=== PATIENT | female | born 1975 | race Caucasian/White ===

== ENCOUNTER → 2018-03-16 12:30 | Outpatient (CLI) | payer OTHER, SELFPAY ==
--- NOTE | 2018-03-16 | DI.RAD.S_ITS ---
PROCEDURE: XR CHEST 2V INDICATIONS: CHEST PAIN TECHNIQUE: 2 views of the chest were acquired. COMPARISON: [facility], , CHEST 2 VIEW, 06/28/2014, 13:38. FINDINGS: Surgical changes and devices: None. Lungs and pleura: No pleural effusions or pneumothorax. Lungs are clear. Mediastinum: Mediastinal contours are normal. Heart size is normal. Bones and chest wall: No suspicious bony abnormalities. Soft tissues appear unremarkable. IMPRESSION: No acute cardiopulmonary disease. Dictated by: Chivo Bentley M.D. on 03/16/2018 at 17:02 Approved by: Chivo Bentley M.D. on 03/16/2018 at 17:03
== END ==
PROVIDERS: PCP Physician Assistant; Visit Provider Physician Assistant
DX: R07.9 Chest pain, unspecified (principal)
CPT/HCPCS: 71046

== ENCOUNTER → 2019-04-19 10:52 | Outpatient (CLI) | payer OTHER, SELFPAY ==
[2019-04-19 12:58] LABS: Free T4, Direct Thyroxine 1.21 ng/dL (0.78-2.19)
== END ==
PROVIDERS: PCP Physician Assistant; Visit Provider Obstetrics & Gynecology
DX: N92.0 Excessive and frequent menstruation with regular cycle (principal)
CPT/HCPCS: 36415; 84439; 84443

== ENCOUNTER → 2020-01-18 06:41 | Outpatient (CLI) | payer OTHER, SELFPAY ==
--- NOTE | 2020-01-18 | DI.CT.S_ITS ---
PROCEDURE: CT SINUS SCREEN WO CON INDICATIONS: New daily persistent headache sinusitis TECHNIQUE: Noncontrast 3.0 mm axial images acquired from the frontal sinuses to the mid-sella, with coronal and sagittal reformats. For radiation dose reduction, the following was used: automated exposure control, adjustment of mA and/or kV according to patient size. COMPARISON: None. FINDINGS: Image quality: Excellent. Maxillary Sinuses: No bony remodeling or destruction. Sinuses are clear except for a mild chronic appearing mucous retention cyst inferior left maxillary sinus. Ethmoid Air Cells: No bony remodeling or destruction. Sinuses are clear. Sphenoid Sinuses: No bony remodeling or destruction. Sinuses are clear. Frontal Sinuses: No bony remodeling or destruction. Sinuses are clear. Ostiomeatal Complexes: Ostiomeatal complexes are patent. No Sung cells. Miscellaneous: Visualized intra-orbital contents are normal. No claudio bullosa or paradoxical turbinate curvature. No nasal septal deviation. IMPRESSION: Currently there is no evidence of acute or chronic sinusitis. Mastoid air cells are clear. Note is made of a small mucous retention cyst at the inferior aspect of the left maxillary sinus. Dictated by: Evans Herron M.D. on 01/18/2020 at 11:50 Approved by: Evans Herron M.D. on 01/18/2020 at 11:51
--- NOTE | 2020-01-18 07:41 | DI.CT.S_ITS ---
PROCEDURE: CT HEAD/BRAIN WO CON INDICATIONS: New daily persistent headache sinusitis TECHNIQUE: Noncontrast 4.5 mm thick angled axial sections acquired from the foramen magnum to the vertex, with coronal and sagittal reformats. For radiation dose reduction, the following was used: automated exposure control, adjustment of mA and/or kV according to patient size. COMPARISON: None. FINDINGS: Image quality: Excellent. CSF spaces: Basal cisterns are patent. No extra-axial fluid collections. Ventricles are normal in size and shape. Brain: No midline shift. No intracranial masses or hemorrhage. Dia-white matter interface is normal. Skull and face: Calvarium and visualized facial bones are intact, without suspicious lesions. Sinuses: Visualized sinuses and mastoids are clear. IMPRESSION: Normal for age, source of current headaches is not seen. Dictated by: Evans Herron M.D. on 01/18/2020 at 8:19 Approved by: Evans Herron M.D. on 01/18/2020 at 8:19
[2020-01-18 08:19] LABS: Add Manual Diff / Slide Review NO; Basophils Absolute Auto 100 /uL (0-100); Basophils Percent Auto 0.7 % (0-2); Eosinophils Absolute Auto 100 /uL (0-450); Eosinophils Percent Auto 1.5 % (2-4); Hematocrit 37.2 % (36-46); Hemoglobin 12.1 g/dL (12.0-16.0); Lymphocytes Absolute Auto 1700 /uL (1100-4500); Lymphocytes Percent Auto 22.1 % (25-40); Mean Corpuscular HGB Conc 32.6 % (30-36); Mean Corpuscular Hemoglobin 24.7 PG (26-34); Mean Corpuscular Volume 75.6 fL (80-100); Monocytes Absolute Auto 700 /uL (0-900); Monocytes Percent Auto 9.2 % (3-14); Neutrophils Absolute Auto 5200 /uL (1500-7000); Neutrophils Percent Auto 66.5 % (50-75); Platelet Count 362 X10^3/uL (150-400); Red Blood Cell Count 4.92 X10^6/uL (4.0-5.2); Red Cell Distribution Width 14.6 % (11.6-14.8); White Blood Cell Count 7.9 X10^3/uL (4.5-11.0)
[2020-01-18 08:38] LABS: Alanine Aminotransferase 13 IU/L (<35); Albumin 4.3 g/dL (3.5-5.0); Albumin Globulin Ratio 1.5 (1.0-2.8); Alkaline Phosphatase 67 U/L (38-126); Aspartate Aminotransferase 19 IU/L (14-36); BUN Creatinine Ratio 18.4 (6-22); Bilirubin Total 0.4 mg/dL (0.2-1.3); Blood Urea Nitrogen 14 mg/dL (7-17); C-Reactive Protein Quant 0.6 mg/dL (<1.0); Calcium 9.2 mg/dL (8.4-10.2); Carbon Dioxide 27 mmol/L (22-32); Chloride 104 mmol/L (98-107); Cholesterol 287 mg/dL (140-199); Estimated Glomerular Filt Rate > 60.0 mL/min (>60); Globulin 2.9 g/dL (1.7-4.1); Glucose 86 mg/dL (70-100); HDL Cholesterol 49 mg/dL (40-60); HEMOLYSIS < 15 (0-50); LDL Cholesterol Calculated 160 mg/dL (<100); Potassium 4.3 mmol/L (3.4-5.1); Sodium 138 mmol/L (137-145); Total Protein 7.2 g/dL (6.3-8.2); Triglycerides 390 mg/dL (35-150)
[2020-01-18 08:49] LABS: Erythrocyte Sedimentation Rate 23 MM/HR (0-20)
== END ==
PROVIDERS: PCP Physician Assistant; Referring Provider Physician Assistant; Visit Provider Physician Assistant
DX: G44.52 New daily persistent headache (NDPH) (principal); G43.909 Migraine, unspecified, not intractable, without status migrainosus; J32.1 Chronic frontal sinusitis; E78.00 Pure hypercholesterolemia, unspecified; J34.1 Cyst and mucocele of nose and nasal sinus
CPT/HCPCS: 36415; 70450; 70486; 80053; 80061; 85025; 85651; 86140

== ENCOUNTER 2021-01-31 13:41 | Emergency (ER) | payer BC, SELFPAY ==
[2021-01-31 13:49] VITALS: BP 178/108; PULSE 93; RESP 17; TEMP 36.4; O2SAT 99
[2021-01-31] MEDS: DEXAMETHASONE 10 MG/ML VIAL IV (14:33)
[2021-01-31] MEDS: diphenhydrAMINE 50 MG/ML VIAL IV (14:33)
[2021-01-31] MEDS: SODIUM CHLORIDE 0.9% 1,000 ML 1000 ML IV (14:33)
[2021-01-31] MEDS: KETOROLAC 30 MG/ML VIAL 15 MG IV (14:33)
[2021-01-31] MEDS: METOCLOPRAMIDE 10 MG/2 ML INJ IV (14:34)
--- NOTE | 2021-01-31 14:46 | ED.HA ---
HPI - Headache <Javier Alegria PA-C - Last Filed: 01/31/21 18:57> General Chief Complaint: Headache Stated Complaint: migraine Time Seen by Provider: 01/31/21 14:01 Mode of arrival: Ambulatory History of Present Illness HPI Narrative: Maria Luisa presents today with chief complaint of frontal headache that came on this morning after she woke up at approximately 6:15 a.m.. She reports that she has a history of migraines and states that this is the exact same as her previous headaches. She denies any subtle differences to this headache than her previous ones. She has had 2 episodes of vomiting, has light sensitivity and sound sensitivity. She denies any significant runny nose, sore throat, cough, chest pain, abdominal pain or any other acute concerns or complaints at this time. She has not taken anything to help alleviate her symptoms. She has only had a few sips of fluids today. Related Data Home Medications Medication Instructions Recorded Confirmed Sumatriptan Succinate (Imitrex) 100 PRN #0 09/23/09 05/27/19 [ALEVE] PRN #0 09/23/09 05/27/19 [SINUS H/A MED] PRN #0 09/23/09 05/27/19 propranolol 10 mg tablet 10 mg PO QDAY #0 09/17/16 05/27/19 atorvastatin 20 mg tablet 20 mg PO DAILY 04/19/19 05/27/19 esomeprazole magnesium 40 mg 40 mg PO BID cap 04/19/19 05/27/19 capsule,delayed release losartan 50 mg tablet 50 mg PO DAILY 04/19/19 05/27/19 Allergies Allergy/AdvReac Type Severity Reaction Status Date / Time No Known Allergies Allergy Uncoded 05/27/19 15:58 Review of Systems <Javier Alegria PA-C - Last Filed: 01/31/21 18:57> Review of Systems Narrative: As per HPI Patient History <Javier Alegria PA-C - Last Filed: 01/31/21 18:57> Medical History (Updated 01/31/21 @ 16:04 by Javier Alegria PA-C) Acne (~1992) Allergies (~2009) Chicken pox (~1978) Vision disorder Surgical History (Updated 04/21/19 @ 19:36 by Arelis Lovelace) Anesthesia History of esophagogastroduodenoscopy (EGD) History of tonsillectomy (~2006) Intussusception of small bowel (~1974) Family History (Updated 04/21/19 @ 19:40 by Arelis Lovelace) Father AVM (arteriovenous malformation) Mother Hyperlipidemia Hypertension Sister Hyperlipidemia Hypertension Grandfather Diabetes mellitus Grandmother Liver cancer Hypertension History of heart disease Grandfather History of heart disease Hypertension Stroke Social History Smoking Status: Never smoker Smoking Status: Never smoker Substance Use Type: does not use Exam <Javier Alegria PA-C - Last Filed: 01/31/21 18:57> Narrative Exam Narrative: Const General: cooperative, healthy appearing, comfortable and no acute distress Nutritional Appearance: average body habitus and well nourished Orientation: alert and oriented x3 HENMT Head: normal to inspection and normocephalic Ears: hearing grossly normal bilaterally, external ears normal, TM's normal bilaterally, EAC's normal, mastoids normal and no periauricular adenopathy Nose: external nose normal, nares normal and no nasal discharge Eyes: PERRLA, EOMI, light sensitivity noted bilaterally. Face and sinus: normal facial exam, sinuses nontender and face symmetric Mouth: oral mucosae normal, lip normal, tongue normal and moist mucous membranes Teeth and gingiva: dentition normal and gingiva normal Throat: posterior oropharynx normal, uvula midline, no postnasal drainage and no uvular edema Eyes periorbital findings normal, eyelids normal, conjunctivae normal Neck: normal visual inspection, full ROM, no lymphadenopathy, no meningeal signs and supple Resp normal respiratory effort, able to speak in complete sentences, not labored and no respiratory distress, clear to auscultation bilaterally, no crackles, no rales and no wheezes Cardio regular rate regular rhythm Heart Sounds: no gallops, no murmurs and no rubs Extrem normal to inspection, no pedal edema and no calf tenderness Neuro Alert and Oriented x3, normal gait, moves all extremities, cranial nerves 2-12 grossly intact, normal coordination. Initial Vital Signs Initial Vital Signs: Vital Signs Temperature 97.6 F 01/31/21 13:49 Pulse Rate 93 H 01/31/21 13:49 Respiratory Rate 17 01/31/21 13:49 Blood Pressure 178/108 H 01/31/21 13:49 Pulse Oximetry 99 01/31/21 13:49 <Juan Malik DO - Last Filed: 02/04/21 07:10> Initial Vital Signs Initial Vital Signs: Vital Signs Temperature 97.6 F 01/31/21 13:49 Pulse Rate 93 H 01/31/21 13:49 Respiratory Rate 17 01/31/21 13:49 Blood Pressure 178/108 H 01/31/21 13:49 Pulse Oximetry 99 01/31/21 13:49 Course <Javier Alegria PA-C - Last Filed: 01/31/21 18:57> Orders Ordered: Discontinued Medications Dexamethasone (Dexamethasone 10 Mg/Ml Vial) 10 mg IV NOW ONE Stop: 01/31/21 14:18 Last Admin: 01/31/21 14:33 Dose: 10 mg Documented by: CAMILLA Diphenhydramine HCl (Diphenhydramine 50 Mg/Ml Vial) 50 mg IV NOW ONE Stop: 01/31/21 14:20 Last Admin: 01/31/21 14:33 Dose: 50 mg Documented by: CAMILLA Sodium Chloride (Normal Saline 0.9%) 1,000 mls @ 1,000 mls/hr IV BOLUS ONE Stop: 01/31/21 15:16 Last Infusion: 01/31/21 16:19 Dose: 0 mls/hr Documented by: Admin: 01/31/21 14:33 Dose: 1,000 mls/hr Documented by: CAMILLA Ketorolac Tromethamine (Ketorolac 30 Mg/Ml Vial) 15 mg IV NOW ONE Stop: 01/31/21 14:18 Last Admin: 01/31/21 14:33 Dose: 15 mg Documented by: CAMILLA Metoclopramide HCl (Metoclopramide 10 Mg/2 Ml Inj) 10 mg IV NOW ONE Stop: 01/31/21 14:18 Last Admin: 01/31/21 14:34 Dose: 10 mg Documented by: CAMILLA Vital Signs Vital signs: Vital Signs - 8 hr 01/31/21 13:49 01/31/21 16:21 Temperature 97.6 F Pulse Rate 93 H 96 H Respiratory Rate 17 Blood Pressure 178/108 H 166/78 H Pulse Oximetry 99 99 <Juan Malik DO - Last Filed: 02/04/21 07:10> Orders Ordered: Discontinued Medications Dexamethasone (Dexamethasone 10 Mg/Ml Vial) 10 mg IV NOW ONE Stop: 01/31/21 14:18 Last Admin: 01/31/21 14:33 Dose: 10 mg Documented by: CAMILLA Diphenhydramine HCl (Diphenhydramine 50 Mg/Ml Vial) 50 mg IV NOW ONE Stop: 01/31/21 14:20 Last Admin: 01/31/21 14:33 Dose: 50 mg Documented by: CAMILLA Sodium Chloride (Normal Saline 0.9%) 1,000 mls @ 1,000 mls/hr IV BOLUS ONE Stop: 01/31/21 15:16 Last Infusion: 01/31/21 16:19 Dose: 0 mls/hr Documented by: Admin: 01/31/21 14:33 Dose: 1,000 mls/hr Documented by: CAMILLA Ketorolac Tromethamine (Ketorolac 30 Mg/Ml Vial) 15 mg IV NOW ONE Stop: 01/31/21 14:18 Last Admin: 01/31/21 14:33 Dose: 15 mg Documented by: CAMILLA Metoclopramide HCl (Metoclopramide 10 Mg/2 Ml Inj) 10 mg IV NOW ONE Stop: 01/31/21 14:18 Last Admin: 01/31/21 14:34 Dose: 10 mg Documented by: CAMILLA Vital Signs Vital signs: Vital Signs - 8 hr 01/31/21 13:49 01/31/21 16:21 Temperature 97.6 F Pulse Rate 93 H 96 H Respiratory Rate 17 Blood Pressure 178/108 H 166/78 H Pulse Oximetry 99 99 MDM - Headache <Javier Alegria PA-C - Last Filed: 01/31/21 18:57> [facility] Narrative Medical decision making narrative: Differential diagnosis includes subarachnoid hemorrhage, meningitis, tension headache, intracranial bleed, neoplasm. Patient has known history of migraines and reports that this headache is of the exact same characteristic as her previous headaches. She denies any sudden onset or maximal in onset symptoms. She denies any fever, neck stiffness, unexpected weight changes. Her symptoms improved with PE therapy here in the emergency department. She had a normal neurologic examination. We will treat eye as an outpatient at this time. She has home a migraine medication that she did not take today that she can take tomorrow if symptoms continue. Recommend PCP follow-up. ER return precautions were discussed. Patient verbalizes understanding and agrees to plan and has no further concerns at this time. Thank you A [id number] system was used with the dictation of this note. Please disregard any spelling or grammatical errors. Discharge Plan Departure Patient Disposition: Home Clinical Impression: Migraines Qualifiers: Migraine type: without aura Status migrainosus presence: without status migrainosus Intractability: not intractable Qualified Code(s): G43.009 - Migraine without aura, not intractable, without status migrainosus Instructions: DI for Migraine Activity Restrictions/Additional Instructions: It was very nice to meet you this afternoon. Please go home and get some rest. If you have worsening symptoms including fever, confusion, dizziness, worsening pain or any other acute concerns or complaints do not hesitate to return for re-evaluation. Thank you Javier Alegria PA-C Prescriptions: No Action Sumatriptan Succinate (Imitrex) 100 PRN Qty: 0 RF: 0 [SINUS H/A MED] PRN Qty: 0 RF: 0 [ALEVE] PRN Qty: 0 RF: 0 propranolol 10 MG tablet 10 mg PO QDAY Qty: 0 RF: 0 atorvastatin 20 mg tablet 20 mg PO DAILY RF: 0 losartan 50 mg tablet 50 mg PO DAILY RF: 0 esomeprazole magnesium 40 mg capsule,delayed release(DR/EC) 40 mg PO BID RF: 0 Referrals: Justa Cabrera PA-C [Primary Care Provider] - <Juan Malik DO - Last Filed: 02/04/21 07:10> [facility] Dr Malik Co-Sign Statement: I was available for consultation during this patient's emergency department visit. This chart is signed by myself for administrative purposes only. I did not have direct contact with this patient during this visit. They were seen independently by the APC.
[2021-01-31 16:21] VITALS: BP 166/78; PULSE 96; O2SAT 99
== END 2021-01-31 16:21 | disposition home or self-care (01) ==
PROVIDERS: Emergency Provider Physician Assistant; PCP Physician Assistant
DX: G43.009 Migraine without aura, not intractable, without status migrainosus (principal); R11.10 Vomiting, unspecified
CPT/HCPCS: 96361; 96374; 96375; 99283; 99284; J1100; J1200; J1885; J2765

== ENCOUNTER 2022-08-30 09:59 | Emergency (ER) | payer BC, SELFPAY ==
[2022-08-30] VITALS (14 sets, daily range): BP systolic 188–228; BP diastolic 93–113; PULSE 85–98; RESP 14–22; TEMP 36.5; O2SAT 97–100; BMI 35.5
[2022-08-30] MEDS: ONDANSETRON 4 MG ODT SL (11:38)
--- NOTE | 2022-08-30 11:45 | DI.CT.S_ITS ---
PROCEDURE: CT HEAD/BRAIN WO CON INDICATIONS: migtaine, htn TECHNIQUE: Noncontrast 4.5 mm thick angled axial sections acquired from the foramen magnum to the vertex, with coronal and sagittal reformats. For radiation dose reduction, the following was used: automated exposure control, adjustment of mA and/or kV according to patient size. COMPARISON: [facility], CT, CT HEAD/BRAIN WO CON, 01/18/2020, 6:54. FINDINGS: Image quality: Excellent. CSF spaces: Basal cisterns are patent. No extra-axial fluid collections. Ventricles are normal in size and shape. Brain: No midline shift. No intracranial masses or hemorrhage. Dia-white matter interface is normal. Skull and face: Calvarium and visualized facial bones are intact, without suspicious lesions. Sinuses: Visualized sinuses and mastoids are clear. IMPRESSION: Normal CT head without acute intracranial findings. Dictated by: Sal[place] Fair M.D. on 08/30/2022 at 12:35 Approved by: Sal[place] Fair M.D. on 08/30/2022 at 12:37
--- NOTE | 2022-08-30 12:39 | ED_ITS ---
HPI - Headache General Chief Complaint: Headache Stated Complaint: Migraine Time Seen by Provider: 08/30/22 11:44 Source: patient, RN notes reviewed and old records reviewed Mode of arrival: Ambulatory Limitations: no limitations History of Present Illness HPI Narrative: This is a 46-year-old female with history of migraines, dyslipidemia, GERD, intussusception has not 8-month-old with surgical repair. Patient presents she states she gets migraines quite frequently but today has a little bit worse. She states about once or twice annually she will have a migraine that is worse than her typical. Typical pattern in terms of location of pain she has a little photophobia, slight blurred vision, she has nausea she is had some vomiting. Patient denies numbness, tingling or weakness. No syncope. No fevers or chills. No chest pain or shortness of breath. No diarrhea, no constipation, no incontinence. Patient states she tried to sumatriptan this morning without any resolution. She is had some mild migraine symptoms for last several days she is been using her sumatriptan it will be helpful but today was not. Patient states she also takes Nexium, amitriptyline and atorvastatin for her daily medications. She states she had a prior throat surgery for nodule and tonsils removed 15 years ago and had surgery for intussusception at 8 months age. No known drug allergies. She does have some seasonal allergies and sensitivity to sent. No tobacco, no alcohol, no illicit. Her primary care is Justa Cabrera. Related Data Home Medications Medication Instructions Recorded Confirmed Sumatriptan Succinate (Imitrex) 100 PRN ##0 09/23/09 05/27/19 [ALEVE] PRN ##0 09/23/09 05/27/19 [SINUS H/A MED] PRN ##0 09/23/09 05/27/19 propranolol 10 mg tablet 10 mg PO QDAY ##0 09/17/16 05/27/19 atorvastatin 20 mg tablet 20 mg PO DAILY 04/19/19 05/27/19 esomeprazole magnesium 40 mg 40 mg PO BID 04/19/19 05/27/19 capsule,delayed release losartan 50 mg tablet 50 mg PO DAILY 04/19/19 05/27/19 Previous Rx's Medication Instructions Recorded sumatriptan succinate 100 mg tablet See Rx Instructions PO .COMPLEX 08/30/22 #10 tabs Allergies Allergy/AdvReac Type Severity Reaction Status Date / Time No Known Drug Allergies Allergy Verified 08/30/22 13:42 Review of Systems Review of Systems ROS Unobtainable: All systems reviewed & are unremarkable except as noted in HPI and below Patient History Medical History Acne (~1992) Allergies (~2009) Chicken pox (~1978) Vision disorder Surgical History Anesthesia History of esophagogastroduodenoscopy (EGD) History of tonsillectomy (~2006) Intussusception of small bowel (~1974) Family History Father AVM (arteriovenous malformation) Mother Hyperlipidemia Hypertension Sister Hyperlipidemia Hypertension Grandfather Diabetes mellitus Grandmother Liver cancer Hypertension History of heart disease Grandfather History of heart disease Hypertension Stroke Social History Smoking Status: Never smoker Smoking Status: Never smoker Substance Use Type: does not use Exam Narrative Exam Narrative: GEN: well nourished, well appearing female, alert and oriented x 3, patient appears to be in [id number] distress. HEENT: Atraumatic, pupils are equal round reactive to light, positive photophobia, extraocular movements are intact, nares are clear, TMs are clear with no fluid, there is no conjunctival pallor. Throat is clear without any exudates, erythema, tonsillar enlargement or uvular deviation, no facial droop. HEART: Regular rate and rhythm without murmur, clicks, rubs. Pulses are equal in upper and lower extremities LUNGS:Lungs clear to auscultation, no wheezes, rales, crackles, chest moves symmetrically ABD:bowel sounds normal, soft, non-tender, no guarding, rebound, rigidity, no masses noted, no hepatosplenomegaly :No CVA tenderness MSCL: Non-tender, no muscle atrophy, muscles strength 5/5 upper and lower extremities, full range of motion, normal gait NEURO:CN 2-12 intact, sensation normal, finger nose finger test normal, heel schwartz test normal, normal speech, no dysarthria SKIN: No rash, erythema or other skin changes. Initial Vital Signs Initial Vital Signs: Vital Signs Pulse Rate 98 H 08/30/22 10:14 Pulse Oximetry 99 08/30/22 10:14 Course Orders Ordered: Discontinued Medications Dexamethasone (Dexamethasone 10 Mg/Ml Vial) 10 mg IV NOW ONE Stop: 08/30/22 12:49 Last Admin: 08/30/22 13:06 Dose: 10 mg Documented By: DEANNA Sodium Chloride (Normal Saline 0.9%) 1,000 mls @ 1,000 mls/hr IV BOLUS ONE Stop: 08/30/22 13:47 Last Infusion: 08/30/22 14:32 Dose: 0 mls/hr Documented By: Infusion: 08/30/22 13:44 Dose: 1,000 mls/hr Documented By: Infusion: 08/30/22 13:10 Dose: 0 mls/hr Documented By: Admin: 08/30/22 13:06 Dose: 1,000 mls/hr Documented By: DEANNA Ketorolac Tromethamine (Ketorolac 30 Mg/Ml Vial) 15 mg IV NOW ONE Stop: 08/30/22 12:49 Last Admin: 08/30/22 13:06 Dose: 15 mg Documented By: RB Metoclopramide HCl (Metoclopramide 10 Mg/2 Ml Inj) 10 mg IV NOW ONE Stop: 08/30/22 12:49 Last Admin: 08/30/22 13:06 Dose: 10 mg Documented By: RB Ondansetron HCl (Ondansetron 4 Mg Odt) 4 mg SL NOW ONE Stop: 08/30/22 11:37 Last Admin: 08/30/22 11:38 Dose: 4 mg Documented By: RB Vital Signs Vital signs: Vital Signs - 8 hr 08/30/22 10:19 08/30/22 10:14 08/30/22 10:15 Temperature 97.7 F Pulse Rate 91 H 98 H Respiratory Rate 22 Blood Pressure 218/112 H 218/112 H Pulse Oximetry 99 99 Oxygen Delivery Method Room Air 08/30/22 10:15 08/30/22 10:30 08/30/22 10:30 Temperature Pulse Rate 96 H 85 Respiratory Rate 18 Blood Pressure 188/109 H Pulse Oximetry 100 97 Oxygen Delivery Method 08/30/22 11:00 08/30/22 11:01 08/30/22 11:01 Temperature Pulse Rate 91 H 90 Respiratory Rate 18 14 Blood Pressure 193/101 H Pulse Oximetry 98 98 Oxygen Delivery Method 08/30/22 11:30 08/30/22 11:30 08/30/22 11:34 Temperature Pulse Rate 90 Respiratory Rate 14 Blood Pressure 228/103 H 210/113 H Pulse Oximetry 100 Oxygen Delivery Method 08/30/22 11:34 08/30/22 12:00 08/30/22 12:00 Temperature Pulse Rate 92 H 89 Respiratory Rate 21 18 Blood Pressure 206/98 H Pulse Oximetry 99 98 Oxygen Delivery Method 08/30/22 12:31 08/30/22 13:00 08/30/22 13:30 Temperature Pulse Rate 90 91 H 95 H Respiratory Rate 19 21 Blood Pressure Pulse Oximetry 100 99 99 Oxygen Delivery Method 08/30/22 13:41 08/30/22 13:41 08/30/22 14:00 Temperature Pulse Rate 92 H Respiratory Rate 19 Blood Pressure 195/101 H 204/93 H Pulse Oximetry 98 Oxygen Delivery Method Room Air 08/30/22 14:00 Temperature Pulse Rate 97 H Respiratory Rate 20 Blood Pressure Pulse Oximetry 97 Oxygen Delivery Method MDM - Headache Imaging Data CT scan - head: Radiologist's Impression: Close Head CT (Signed) [place] Fair - 08/30/[address] (Signed) Evans Herron - 01/18/[address] (Signed) Evans Herron - 01/18/20 Chest X-Ray (Signed) Maxim Bentley - 03/16/18 [place] [address] CT Scan Report Signed Patient: Maria Luisa Dong MR#: [id number] : 1975 Acct:[id number] Age/Sex: 46 / F Date of Service: 08/30/22 Loc: ED Accession Number: [id number] ?? Procedure: CT head/brain wo con Ordering Provider: Elsy Frias D.O. PROCEDURE:? CT HEAD/BRAIN WO CON ? INDICATIONS:? migtaine, htn ? TECHNIQUE:? Noncontrast 4.5 mm thick angled axial sections acquired from the foramen magnum to the vertex, with coronal and sagittal reformats.? For radiation dose reduction, the following was used:? automated exposure control, adjustment of mA and/or kV according to patient size.? ? COMPARISON:? [facility], CT, CT HEAD/BRAIN WO CON, 01/18/2020, 6:54. ? FINDINGS:? Image quality:? Excellent.? ? CSF spaces:? Basal cisterns are patent.? No extra-axial fluid collections.? Ventricles are normal in size and shape.? ? Brain:? No midline shift.? No intracranial masses or hemorrhage.? Dia-white matter interface is normal.? ? Skull and face:? Calvarium and visualized facial bones are intact, without suspicious lesions.? ? Sinuses:? Visualized sinuses and mastoids are clear.? ? IMPRESSION:? Normal CT head without acute intracranial findings. ? ? Dictated by: [place] Fair M.D. on 08/30/2022 at 12:35 ? ? Approved by: [place] Fair M.D. on 08/30/2022 at 12:37?? MDM Narrative Medical decision making narrative: This is a 46-year-old female with history of migraines, patient is quite hypertensive, even on recheck still hypertensive. Could be pain response patient states she is not normally on daily blood pressure medications but felt appropriate for head CT. She is having fairly typical migraine symptoms but a little bit worse than her normal. Not her worst headache of her life. Patient states she has been high before in the past but not consistently and her physicians ever felt she needed to started on medication. Patient was somewhat high in the 170 systolic on her last visit here. She has been here once before for migraines but not regularly. Head CT was obtained is negative. Plan for Toradol, fluids, Reglan and dexamethasone for intractable migraine. Patient states she is improvement thought totally resolved but much better. Patient's hypertension has been improving not normalized but discussed would like to have patient follow up outpatient to recheck blood pressure, she does not have any other acute neurologic changes or other concerning findings necessitate further workup at this time. Patient does request refill for her sumatriptan. Return precautions discussed. Discharge Plan Departure Patient Disposition: Home Clinical Impression: Migraines Instructions: DI for Migraine Activity Restrictions/Additional Instructions: Follow-up with your physician for recheck. Your blood pressures have been elevated on your last 2 visits, would recommend checking your blood pressure regularly and if persistently elevated you may need to be started on medication for hypertension. You may continue your home medications as prescribed. Prescription refill for your Sumatriptan was sent to [facility] in [place]. Please return for rapidly worsening headaches, atypical or different changes, persistent vomiting, passing out, fevers, new numbness, tingling weakness, difficulty with speech facial droop or other new or concerning changes. Prescriptions: New sumatriptan succinate 100 mg tablet See Rx Instructions .ROUTE .COMPLEX Qty: 10 0RF Rx Instructions: take 1 tab at onset of headache; if no relief, may repeat 1 tab after at least 2 hrs; max = 2 tabs/24 hrs No Action Sumatriptan Succinate (Imitrex) 100 PRN Qty: 0 [SINUS H/A MED] PRN Qty: 0 [ALEVE] PRN Qty: 0 propranolol 10 MG tablet 10 mg PO QDAY Qty: 0 atorvastatin 20 mg tablet 20 mg PO DAILY losartan 50 mg tablet 50 mg PO DAILY esomeprazole magnesium 40 mg capsule,delayed release(DR/EC) 40 mg PO BID Referrals: Justa Cabrera PA-C [Primary Care Provider] - Stand Alone Forms: Patient Portal/API
[2022-08-30] MEDS: METOCLOPRAMIDE 10 MG/2 ML INJ IV (13:06)
[2022-08-30] MEDS: DEXAMETHASONE 10 MG/ML VIAL IV (13:06)
[2022-08-30] MEDS: SODIUM CHLORIDE 0.9% 1,000 ML 1000 ML IV (13:06)
[2022-08-30] MEDS: KETOROLAC 30 MG/ML VIAL 15 MG IV (13:06)
== END 2022-08-30 14:39 | disposition home or self-care (01) ==
PROVIDERS: Emergency Provider Emergency Medicine; PCP Physician Assistant
DX: G43.909 Migraine, unspecified, not intractable, without status migrainosus (principal); I10 Essential (primary) hypertension
CPT/HCPCS: 70450; 96374; 96375; 99284; J1100; J1885; J2765

== ENCOUNTER 2022-10-01 21:30 | Emergency (ER) | payer BC, SELFPAY ==
[2022-10-01 21:45] VITALS: BP 217/100; PULSE 97; RESP 18; TEMP 36.8; O2SAT 98; BMI 34.7
--- NOTE | 2022-10-01 22:10 | DI.RAD.S_ITS ---
PROCEDURE: XR CHEST 1V INDICATIONS: Shortness of breath TECHNIQUE: One view of the chest was acquired. COMPARISON: [facility], [facility], XR CHEST 2V, 03/16/2018, 12:09. [facility], [facility], CHEST 2 VIEW, 06/28/2014, 13:38. FINDINGS: Surgical changes and devices: None. Lungs and pleura: Lung volumes are slightly low. No dense consolidation or pleural effusion. Mediastinum: Heart size is at the upper limit of normal. Bones and chest wall: No suspicious bony lesions. Overlying soft tissues appear unremarkable. IMPRESSION: No acute radiographic abnormality. Dictated by: Ced Reeves M.D. on 10/01/2022 at 22:40 Approved by: Ced Reeves M.D. on 10/01/2022 at 22:40
[2022-10-01 22:24] LABS: Add Manual Diff / Slide Review NO; Basophils Absolute Auto 100 /uL (0-100); Basophils Percent Auto 0.8 % (0-2); Eosinophils Absolute Auto 200 /uL (0-450); Eosinophils Percent Auto 1.8 % (2-4); Hematocrit 32.6 % (36-46); Hemoglobin 10.2 g/dL (12.0-16.0); Lymphocytes Absolute Auto 2000 /uL (1100-4500); Lymphocytes Percent Auto 23.2 % (25-40); Mean Corpuscular HGB Conc 31.4 % (30-36); Mean Corpuscular Hemoglobin 20.3 PG (26-34); Mean Corpuscular Volume 64.5 fL (80-100); Monocytes Absolute Auto 800 /uL (0-900); Monocytes Percent Auto 9.6 % (3-14); Neutrophils Absolute Auto 5500 /uL (1500-7000); Neutrophils Percent Auto 64.6 % (50-75); Platelet Count 447 X10^3/uL (150-400); Red Blood Cell Count 5.05 X10^6/uL (4.0-5.2); Red Cell Distribution Width 18.1 % (11.6-14.8); White Blood Cell Count 8.5 X10^3/uL (4.5-11.0)
[2022-10-01 22:27] LABS: INR 1.3 (0.9-1.3); Prothrombin Time 14.4 SECONDS (10.1-12.7)
[2022-10-01 22:30] LABS: Lactate (Lactic Acid) 1.3 mmol/L (0.7-2.1)
[2022-10-01 22:31] LABS: Alanine Aminotransferase 23 IU/L (<35); Albumin 4.4 g/dL (3.5-5.0); Albumin Globulin Ratio 1.4 (1.0-2.8); Alkaline Phosphatase 79 U/L (38-126); Aspartate Aminotransferase 26 IU/L (14-36); BUN Creatinine Ratio 9.5 (6-22); Bilirubin Total 0.4 mg/dL (0.2-1.3); Blood Urea Nitrogen 7 mg/dL (7-17); Calcium 9.5 mg/dL (8.4-10.2); Carbon Dioxide 32 mmol/L (22-32); Chloride 96 mmol/L (98-107); Estimated Glomerular Filt Rate > 60 mL/min (>60); Globulin 3.1 g/dL (1.7-4.1); Glucose 92 mg/dL (70-100); HEMOLYSIS < 15 (0-50); Sodium 137 mmol/L (137-145); Total Protein 7.5 g/dL (6.3-8.2)
[2022-10-01 22:36] LABS: D Dimer 314 ng/ml (<500)
[2022-10-01 22:42] LABS: NT-proBNP (BNP-Adult 18+) 114 pg/mL (<125); Troponin I < 0.012 ng/mL (0.01-0.034)
[2022-10-01 23:17] LABS: Hypochromasia 1+; Microcytosis 2+
--- NOTE | 2022-10-01 23:34 | ED_ITS ---
HPI - SOB/Dyspnea General Chief Complaint: Shortness of Breath/Dyspnea Stated Complaint: elevated D Dimer Time Seen by Provider: 10/01/22 21:59 Source: patient Mode of arrival: Ambulatory Limitations: no limitations History of Present Illness HPI Narrative: Patient is a 38-year-old female history of hyperlipidemia, migraines, high blood pressure presenting today with an elevated D-dimer done as outpatient. She r eports that she was recently started on losartan about a month ago. She was taking it for about 2 weeks started noticing swelling in both of her legs and arms. She then traveled on an airplane to go to why she reports continued swelling in [place] however since she is been back the swelling has gone down. She went to her primary care provider who did some blood work to his found have an elevated D-dimer sent here for PE rule. D-dimer was 0.71 cut off is 0.5. The patient reports that she does have some shortness of breath with exertion she definitely noticed it while on vacation. Both of her legs were extremely swollen. She denies any orthopnea. She reports that she sleeps on multiple pillows secondary to GERD. She denies any cough fever or chills. No abdominal pain no nausea or vomiting. She denies any calf pain. No hemoptysis. Related Data Home Medications Medication Instructions Recorded Confirmed Sumatriptan Succinate (Imitrex) 100 PRN ##0 09/23/09 05/27/19 [ALEVE] PRN ##0 09/23/09 05/27/19 [SINUS H/A MED] PRN ##0 09/23/09 05/27/19 propranolol 10 mg tablet 10 mg PO QDAY ##0 09/17/16 05/27/19 atorvastatin 20 mg tablet 20 mg PO DAILY 04/19/19 05/27/19 esomeprazole magnesium 40 mg 40 mg PO BID 04/19/19 05/27/19 capsule,delayed release losartan 50 mg tablet 50 mg PO DAILY 04/19/19 05/27/19 Previous Rx's Medication Instructions Recorded sumatriptan succinate 100 mg tablet See Rx Instructions PO .COMPLEX 08/30/22 #10 tabs Allergies Allergy/AdvReac Type Severity Reaction Status Date / Time No Known Drug Allergies Allergy Verified 08/30/22 13:42 Review of Systems Review of Systems ROS Unobtainable: All systems reviewed & are unremarkable except as noted in HPI and below Patient History Medical History Acne (~1992) Allergies (~2009) Chicken pox (~1978) Vision disorder Surgical History Anesthesia History of esophagogastroduodenoscopy (EGD) History of tonsillectomy (~2006) Intussusception of small bowel (~1974) Family History Father AVM (arteriovenous malformation) Mother Hyperlipidemia Hypertension Sister Hyperlipidemia Hypertension Grandfather Diabetes mellitus Grandmother Liver cancer Hypertension History of heart disease Grandfather History of heart disease Hypertension Stroke Social History Smoking Status: Never smoker Smoking Status: Never smoker Substance Use Type: does not use Exam Initial Vital Signs Initial Vital Signs: Vital Signs Temperature 98.2 F 10/01/22 21:45 Pulse Rate 97 H 10/01/22 21:45 Respiratory Rate 18 10/01/22 21:45 Blood Pressure 217/100 H 10/01/22 21:45 Pulse Oximetry 98 10/01/22 21:45 Oxygen Delivery Method Room Air 10/01/22 21:45 GENERAL: Alert pleasant well-appearing 46-year-old female HEENT: Head atraumatic,EOMI, pupils reactive, face symmetric, moist mucous membranes CARDIOVASCULAR: Regular rate and rhythm without murmurs, rubs or gallops. RESPIRATORY: Breath sounds equal bilaterally, no wheezes rales or rhonchi. No conversational dyspnea ABDOMEN: Soft, nontender. Normoactive bowel sounds all 4 quadrants. No guarding or rebound. EXTREMITIES: Normal range of motion, no clubbing. Mild swelling of bilateral lower extremities no calf. Neurovascularly intact NEUROLOGICAL: Alert and oriented x4. SKIN: Warm, dry, no laceration, no petechiae, no rashes or lesions. Scores PERC Score Age greater than or equal to 50 years: No Heart rate greater than or equal to 100 bpm: No Room Air O2 Sat less than 95%: No Unilateral leg swelling: No Recent trauma or surgery: No Hemoptysis: No Prior PE or DVT: No Hormone Use: No Total PERC Score: 0 Course Orders Ordered: ED Orders 10/01/22 22:05 Complete Blood Count AUTO DIFF Stat Comprehensive Metabolic Panel Stat DD [D Dimer] Stat Lactate (Lactic Acid) Stat NT-proBNP (BNP-Adult 18+) Stat Prothrombin Time INR Stat Troponin I Stat 10/01/22 22:10 XR chest 1V Stat EKG-12 Lead Stat Measure peak expiratory flow ONCE RT Consult Eval and Treat NOW Vital Signs Vital signs: Vital Signs - 8 hr 10/01/22 21:45 10/02/22 00:49 Temperature 98.2 F Pulse Rate 97 H 84 Respiratory Rate 18 20 Blood Pressure 217/100 H 171/78 H Pulse Oximetry 98 96 Oxygen Delivery Method Room Air Room Air MDM - SOB/Dyspnea Lab Data 10/01/22 22:05 10/01/22 22:05 Labs: Lab Results 10/01/22 10/01/22 10/01/22 Range/Units 22:05 22:05 22:05 WBC 8.5 (4.5-11.0) X10^3/uL RBC 5.05 (4.0-5.2) X10^6/uL Hgb 10.2 L (12.0-16.0) g/dL Hct 32.6 L (36-46) % MCV 64.5 L (80-100) fL MCH 20.3 L (26-34) PG MCHC 31.4 (30-36) % RDW 18.1 H (11.6-14.8) % Plt Count 447 H (150-400) X10^3/uL Neut % (Auto) 64.6 (50-75) % Lymph % (Auto) 23.2 L (25-40) % [place] % (Auto) 9.6 (3-14) % Eos % (Auto) 1.8 L (2-4) % Baso % (Auto) 0.8 (0-2) % Neut # (Auto) 5500 (7283-8929) /uL Lymph # (Auto) 2000 (8482-3980) /uL [place] # (Auto) 800 (0-900) /uL Eos # (Auto) 200 (0-450) /uL Baso # (Auto) 100 (0-100) /uL RBC Morphology See below Hypochromasia 1+ H Microcytosis 2+ H PT 14.4 H (10.1-12.7) SECONDS INR 1.3 (0.9-1.3) D-Dimer (<500) ng/ml Sodium 137 (137-145) mmol/L Potassium 3.0 L (3.4-5.1) mmol/L Chloride 96 L (98-107) mmol/L Carbon Dioxide 32 (22-32) mmol/L BUN 7 (7-17) mg/dL Creatinine 0.74 (0.52-1.04) mg/dL Estimated GFR > 60 (>60) mL/min BUN/Creatinine Ratio 9.5 (6-22) Glucose 92 (70-100) mg/dL Lactate (0.7-2.1) mmol/L Calcium 9.5 (8.4-10.2) mg/dL Total Bilirubin 0.4 (0.2-1.3) mg/dL AST 26 (14-36) IU/L ALT 23 (<35) IU/L Alkaline Phosphatase 79 (38-126) U/L Troponin I < 0.012 (0.01-0.034) ng/mL NT-Pro-B Natriuret Pep 114 (<125) pg/mL Total Protein 7.5 (6.3-8.2) g/dL Albumin 4.4 (3.5-5.0) g/dL Globulin 3.1 (1.7-4.1) g/dL Albumin/Globulin Ratio 1.4 (1.0-2.8) 10/01/22 10/01/22 Range/Units 22:05 22:05 WBC (4.5-11.0) X10^3/uL RBC (4.0-5.2) X10^6/uL Hgb (12.0-16.0) g/dL Hct (36-46) % MCV (80-100) fL MCH (26-34) PG MCHC (30-36) % RDW (11.6-14.8) % Plt Count (150-400) X10^3/uL Neut % (Auto) (50-75) % Lymph % (Auto) (25-40) % [place] % (Auto) (3-14) % Eos % (Auto) (2-4) % Baso % (Auto) (0-2) % Neut # (Auto) (8344-2730) /uL Lymph # (Auto) (2698-4496) /uL [place] # (Auto) (0-900) /uL Eos # (Auto) (0-450) /uL Baso # (Auto) (0-100) /uL RBC Morphology Hypochromasia Microcytosis PT (10.1-12.7) SECONDS INR (0.9-1.3) D-Dimer 314 (<500) ng/ml Sodium (137-145) mmol/L Potassium (3.4-5.1) mmol/L Chloride (98-107) mmol/L Carbon Dioxide (22-32) mmol/L BUN (7-17) mg/dL Creatinine (0.52-1.04) mg/dL Estimated GFR (>60) mL/min BUN/Creatinine Ratio (6-22) Glucose (70-100) mg/dL Lactate 1.3 (0.7-2.1) mmol/L Calcium (8.4-10.2) mg/dL Total Bilirubin (0.2-1.3) mg/dL AST (14-36) IU/L ALT (<35) IU/L Alkaline Phosphatase (38-126) U/L Troponin I (0.01-0.034) ng/mL NT-Pro-B Natriuret Pep (<125) pg/mL Total Protein (6.3-8.2) g/dL Albumin (3.5-5.0) g/dL Globulin (1.7-4.1) g/dL Albumin/Globulin Ratio (1.0-2.8) Imaging Data Chest x-ray: Radiologist's Impression: PROCEDURE:? XR CHEST 1V ? INDICATIONS:? Shortness of breath ? TECHNIQUE:? One view of the chest was acquired.? ? COMPARISON:? [facility], , XR CHEST 2V, 03/16/2018, 12:09.? [facility], CHEST 2 VIEW, 06/28/2014, 13:38. ? FINDINGS:? ? Surgical changes and devices:? None.? ? Lungs and pleura:? Lung volumes are slightly low.? No dense consolidation or pleural effusion. ? Mediastinum:? Heart size is at the upper limit of normal. ? Bones and chest wall:? No suspicious bony lesions.? Overlying soft tissues appear unremarkable.? ? IMPRESSION:? No acute radiographic abnormality. ? ? Dictated by: Ced Reeves M.D. on 10/01/2022 at 22:40 ? ? ECG Data Interpretation: Normal sinus rhythm rate 96 VA interval 156 QRS any QTC [address] changes MDM Narrative Medical decision making narrative: Patient 38-year-old female presents today for elevated D-dimer as an outpatient. She actually had bilateral leg swelling after starting losartan. She then went on an airplane had more swelling and shortness of breath with exertion since being back the swelling has gone down and improve. Her D-dimer today is less 500 in his negative and she is a negative PERC score. She is noted to be quite hypertensive here in the emergency department without signs of end-organ damage. BNP is 114. My suspicion for pulmonary embolism is actually quite low. Patient is having signs and symptoms consistent with fluid overload and retention. She was told to stop losartan and start taking hydrochlorothiazide. She started hydrochlorothiazide today she is only taken 1 dose. This may help with some of her swelling and breathing issue however may need Lasix. She is not hypoxic or tachycardic in the emergency department. At this time I think outpatient workup and outpatient echocardiogram. I suspect diastolic heart failure. She is noted to be hypertensive here in the ED with She is no evidence of infection Discharge Plan Departure Patient Disposition: Home Clinical Impression: Hypertension Instructions: Heart Failure, High Blood Pressure Activity Restrictions/Additional Instructions: *You have been diagnosed with high blood pressure *What to do: At this time I do recommend you get an outpatient echocardiogram. I think that your retaining fluid. Hydrochlorothiazide should help however you may need a different medication called Lasix. Your D-dimer in the emergency department was negative *Continue to take medications as directed *Follow up with your primary care provider in 2-3 days or call [phone] *Return to ER if you should have increasing shortness of breath swelling chest pain or any new, worsening or concerning symptoms Prescriptions: No Action Sumatriptan Succinate (Imitrex) 100 PRN Qty: 0 [SINUS H/A MED] PRN Qty: 0 [ALEVE] PRN Qty: 0 propranolol 10 MG tablet 10 mg PO QDAY Qty: 0 atorvastatin 20 mg tablet 20 mg PO DAILY losartan 50 mg tablet 50 mg PO DAILY esomeprazole magnesium 40 mg capsule,delayed release(DR/EC) 40 mg PO BID sumatriptan succinate 100 mg tablet See Rx Instructions .ROUTE .COMPLEX Qty: 10 0RF Rx Instructions: take 1 tab at onset of headache; if no relief, may repeat 1 tab after at least 2 hrs; max = 2 tabs/24 hrs Referrals: Justa Cabrera PA-C [Primary Care Provider] - Stand Alone Forms: Patient Portal/API
[2022-10-02 00:49] VITALS: BP 171/78; PULSE 84; RESP 20; O2SAT 96
== END 2022-10-02 00:50 | disposition home or self-care (01) ==
PROVIDERS: Emergency Provider Emergency Medicine; PCP Physician Assistant
DX: I10 Essential (primary) hypertension (principal); R06.02 Shortness of breath; R79.89 Other specified abnormal findings of blood chemistry
CPT/HCPCS: 36415; 71045; 80053; 83605; 83880; 84484; 85025; 85379; 85610; 93005; 93010; 99283; 99284

== ENCOUNTER → 2023-01-17 08:09 | Outpatient (CLI) | payer BC, SELFPAY ==
--- NOTE | 2023-01-17 08:11 | DI.MG.S_ITS ---
BILATERAL DIGITAL SCREENING MAMMOGRAM 3D/2D WITH CAD: 01/17/2023 CLINICAL: Routine screening. Baseline exam. Family history of breast cancer. No prior exams were available for comparison. Both breasts are heterogeneously dense, which may obscure small masses (category c / 51-75% glandular tissue). Current study was also evaluated with a Computer Aided Detection (CAD) system. No significant masses, calcifications, or other findings are seen in either breast. IMPRESSION: NEGATIVE There is no mammographic evidence of malignancy. A 1 year screening mammogram is recommended. Based on the Tyrer Cuzick model (a risk assessment model) the patient's lifetime risk is 17.2% and her 10 year risk is 4.0%. According to the ACR, ACS, and NCCN guidelines, an annual breast MRI exam along with mammogram is recommended if the patient's lifetime risk is 20% or greater. This exam was interpreted at Station ID: [id number]. NOTE: For mammograms, a report in lay terms will be sent to the patient. Approximately 15% of breast malignancies will not be visualized mammographically. In the management of a palpable breast mass, a negative mammogram must not discourage biopsy of a clinically suspicious lesion. Electronically Signed By: Bello multani/sivakumar:01/19/2023 07:44:27 letter sent: Normal Exam ACR BI-RADS Category 1: Negative [id number]
== END ==
PROVIDERS: PCP Physician Assistant; Referring Provider Physician Assistant; Visit Provider Physician Assistant
DX: Z12.31 Encounter for screening mammogram for malignant neoplasm of breast (principal); Z80.3 Family history of malignant neoplasm of breast
CPT/HCPCS: 77063; 77067

== ENCOUNTER → 2023-04-10 15:25 | Outpatient (CLI) | payer BC, SELFPAY ==
--- NOTE | 2023-04-10 | DI.US.S_ITS ---
PROCEDURE: US PELVIC COMPLETE INDICATIONS: ABNORMAL UTERINE AND VAGINAL BLEEDING, UNSPECIFIED TECHNIQUE: Real-time scanning was performed of the pelvic organs, with image documentation. Additional endovaginal scanning was necessary due to incomplete visualization of the adnexal and endometrial structures by transabdominal scanning. COMPARISON: None. FINDINGS: Uterus: Uterus is anteverted and normal in size at 8.1 x 3.0 x 4.3 cm. The myometrium is homogeneous. The endometrium measures 8 mm combined thickness. Possible partially cystic structure within the cervix versus complex nabothian cyst with vascularity. Ovaries: The right ovary measures 4.2 x 3.1 x 3.5 cm, with a calculated ovarian volume of 23.5 cc. The left ovary measures 5.7 x 3.2 x 4.7 cm, with a calculated ovarian volume of 43.5 cc. Right ovarian cyst measuring 3.1 cm. Left ovarian cyst measuring 5.3 cm. Less than 12 follicles can be seen in each ovary. No adnexal masses are seen. Other: No pathologic free abdominal or pelvic fluid. IMPRESSION: 1. Thickened endometrium measuring 8 mm. Recommend correlation with endometrial sampling or short-term follow-up ultrasound in 6-12 weeks. 2. Bilateral ovarian cysts measuring up to 5.3 cm. Recommend follow-up ultrasound in 6-12 weeks to assess stability or resolution. 3. Complex structure within the cervix with vascularity versus complex nabothian cysts. We strive to produce accurate, complete, and clear reports of imaging services. To assist us in improving patient care, this report was composed using standard report templates and voice recognition software. Therefore, it may contain abnormal punctuation, insertions and/or omissions. Occasional wrong-word or sound-alike substitutions may occur. Though we review the report and make efforts to correct it, we do recommend that the report be read carefully in proper context to recognize any text inaccuracies. Dictated by: Josh Lee M.D. on 04/10/2023 at 16:18 Approved by: Josh Lee M.D. on 04/10/2023 at 16:21
== END ==
PROVIDERS: PCP Physician Assistant; Referring Provider Physician Assistant; Visit Provider Physician Assistant
DX: N95.0 Postmenopausal bleeding (principal); N93.9 Abnormal uterine and vaginal bleeding, unspecified; D64.9 Anemia, unspecified; N83.202 Unspecified ovarian cyst, left side; N83.201 Unspecified ovarian cyst, right side; R93.89 Abnormal findings on diagnostic imaging of other specified body structures
CPT/HCPCS: 76830; 76856; 93975

== ENCOUNTER → 2023-04-15 11:16 | Outpatient (CLI) | payer BC, SELFPAY ==
[2023-04-15 18:45] LABS: Follicle Stimulating Hormone 10.9 mIU/mL
== END ==
PROVIDERS: PCP Physician Assistant; Referring Provider Obstetrics & Gynecology; Visit Provider Obstetrics & Gynecology
DX: N93.8 Other specified abnormal uterine and vaginal bleeding (principal); N95.1 Menopausal and female climacteric states
CPT/HCPCS: 36415; 83001

== ENCOUNTER → 2023-04-29 13:41 | Outpatient (CLI) | payer BC, SELFPAY ==
--- NOTE | 2023-04-29 13:42 | DI.ECHO.S_ITS ---
[facility] +---------+ : : [address] : : : [place], [place] : : : : [id number] : : : : Phone: [phone]+ Echocardiogram Report + + :Name: EUGENIE HILLMAN Study Date: 04/29/2023 Height: 62 in : :[facility] ReadingLocation: Weight: 175 lb : : Gender: Female BSA: 1.8 m2 : :: 1975 Age: 47 yrs BP: 142/99 mmHg: :Reason For Study: DYSPNEA ON EXERTION : :Ordering Physician: JOON, : :CHANI Performed By: July Uriostegui : :Referring: CHANI DUPREE : + + Interpretation Summary 1) Normal left ventricular thickness, size, wall motion, and systolic function (EF 60-65%). 2) Normal right ventricular size and function. 3) No significant valvular abnormalities. 4) No prior Echo available for comparison. Procedure: A two-dimensional transthoracic echocardiogram with color flow and Doppler was performed. The study quality was technically adequate. There is no prior echocardiogram noted for this patient. The patient was in sinus rhythm with heart rates between 68-75 bpm during the exam. Left Ventricle: The left ventricle is normal in size and wall thickness. The ejection fraction is estimated to be 60-65%. Left ventricular systolic function appears normal without focal wall motion abnormalities. Diastolic parameters suggest a relaxation abnormality of the left ventricle, consistent with probable normal filling pressures. Right Ventricle: The right ventricle is normal in size and function. Atria: The left atrial size is normal. Right atrial size is normal. There is no Doppler evidence for an interatrial shunt. Mitral Valve: The mitral valve is normal in structure and function. There is trace mitral regurgitation. Aortic Valve: The aortic valve is trileaflet. The aortic valve opens well. There is no aortic valve stenosis. No aortic regurgitation is present. Tricuspid Valve: The tricuspid valve is normal in structure and function. There is trace tricuspid regurgitation. Pulmonary artery pressures cannot be estimated because of the lack of a measurable TR jet velocity. Pulmonic Valve: The pulmonic valve leaflets are thin and pliable; valve motion is normal. There is trace pulmonic regurgitation. Great Vessels: The aortic root is normal size. The dimensions of the ascending aorta are normal. The IVC is of normal diameter and collapses greater than 50% with a sniff. This suggests a low right atrial pressure of 3 mm Hg. Pericardium/ Pleura There is no pericardial effusion. There is no pleural effusion. MMode/2D Measurements & Calculations LVIDd: 4.7 cm LVOT diam: 2.0 cm LVIDs: 3.2 cm Ao root diam: 3.4 cm FS: 32.3 % asc Aorta Diam: 3.5 cm IVSd: 1.1 cm Ao Arch Diam (Prox Trans): 2.7 cm LVPWd: 0.85 cm LV khoury. diameter/BSA (cm/m^2): 2.6 LV sys. diameter/BSA (cm/m^2): 1.8 LA A2 area: 14.5 cm2 RA long axis: 4.2 cm LA A4 area: 11.4 cm2 RA area: 11.8 cm2 LA length (vol): 4.6 cm RA vol: 28.2 ml LA vol: 30.6 ml RA : 15.6 ml/m2 LA vol index: 17.0 ml/m2 IVC diam: 1.6 cm RVD1 (basal): 3.0 cm TAPSE: 1.6 cm Doppler Measurements & Calculations Ao V2 max: 140.9 cm/sec LVOT Max Aidan: 91.9 cm/sec Ao V2 mean: 95.6 cm/sec LV V1 max P.4 mmHg Ao max P.9 mmHg LV V1 VTI: 19.0 cm Ao mean P.0 mmHg DANIELA(I,D): 2.0 cm2 Ao V2 VTI: 28.0 cm DANIELA(V,D): 2.0 cm2 sev ratio: 0.68 DANIELA indexed to BSA (cm^2/m^2): 1.1 MV E max aidan: 67.2 cm/sec TR max aidan: 209.4 cm/sec MV A max aidan: 63.1 cm/sec TR max P.5 mmHg MV E/A: 1.1 PA V2 max: 85.8 cm/sec Med Peak E' Aidan: 6.8 cm/sec PA V2 mean: 62.1 cm/sec E/E' med: 9.9 PA mean P.7 mmHg Lat Peak E' Aidan: 6.3 cm/sec PA pr(Accel): 32.8 mmHg E/E' lat: 10.6 E/e' average: 10.3 MV dec time: 0.23 sec SV(LVOT): 57.4 ml Reading Physician:01:05 PM
== END ==
PROVIDERS: PCP Physician Assistant; Referring Provider Internal Medicine Cardiovascular Disease; Visit Provider Internal Medicine Cardiovascular Disease
DX: R06.09 Other forms of dyspnea (principal)
CPT/HCPCS: 93306

== ENCOUNTER → 2023-05-14 15:19 | Outpatient (CLI) | payer BC, SELFPAY ==
--- NOTE | 2023-05-14 23:23 | DI.NM.S_ITS ---
DATE OF SERVICE: 05/14/2023 PROCEDURE: Exercise stress test. INDICATIONS: Shortness of breath, hypertension. CARDIAC STRESS: Patient underwent exercise stress test under the supervision of an attending staff. She walked on Aaron protocol for 8 minutes and 12 seconds, achieved maximum heart rate of 160, which was 94% of target heart rate, 10.1 METS of workload and AISHWARYA -5%. Resting blood pressure 140/100 and peak blood pressure 210/100 mmHg. Baseline rhythm was sinus. During stress, no convincing ischemic changes seen. Occasional PACs. No chest pain or anginal symptoms. Patient felt fatigue and dyspnea. CONCLUSION: Exercise stress test is negative for inducible ischemia. Fair exercise tolerance. AISHWARYA -5%. Hypertensive blood pressure response. Peak blood pressure 210/100 mmHg. No complex arrhythmias. No chest pain. Overall, low-risk exercise stress test. Maria Luisa Dong - WARD ASSISTANT/epifanio/ec doc#: [id number]/job#: [id number] dd: 05/14/2023 16:38:00 dt: 05/14/2023 23:07:00 DICTATING /COPIES TO: Seema Mercado MD COPIES MNE: CRUZ;
== END ==
PROVIDERS: PCP Physician Assistant; Referring Provider Internal Medicine Cardiovascular Disease; Visit Provider Internal Medicine Cardiovascular Disease
DX: R06.09 Other forms of dyspnea (principal)
CPT/HCPCS: 93017